=== PATIENT | male | born 1970 | race Caucasian/White ===

== ENCOUNTER 2023-10-01 13:57 | Outpatient (REF) | payer BC, SELFPAY | END 2023-10-01 13:58 | disposition home or self-care (01) | LOC: NPINS 13:57 | PROVIDERS: PCP Family Medicine; Visit Provider Dermatology | DX: L40.0 Psoriasis vulgaris (principal) | CPT/HCPCS: 86480 ==

== ENCOUNTER 2023-10-22 10:21 | Outpatient (CLI) | payer BC, SELFPAY | END 2023-10-22 10:22 | disposition home or self-care (01) | PROVIDERS: PCP Family Medicine; Visit Provider Family Medicine | DX: Z00.00 Encounter for general adult medical examination without abnormal findings (principal); Z13.6 Encounter for screening for cardiovascular disorders; Z13.1 Encounter for screening for diabetes mellitus; Z13.0 Encounter for screening for diseases of the blood and blood-forming organs and certain disorders involving the immune mechanism; Z12.5 Encounter for screening for malignant neoplasm of prostate | CPT/HCPCS: 80048; 80061; G0103 ==

== ENCOUNTER 2024-11-18 13:05 | Outpatient (CLI) | payer BC, SELFPAY | END 2024-11-18 13:06 | disposition home or self-care (01) | LOC: NPINS 13:08 | PROVIDERS: Nurse Practitioner Family; PCP Family Medicine; Visit Provider Internal Medicine Endocrinology, Diabetes & Metabolism | DX: L40.0 Psoriasis vulgaris (principal) | CPT/HCPCS: 86480 ==